=== PATIENT | male | born 1935 | race Caucasian/White ===

== ENCOUNTER 2021-10-03 21:24 | Emergency (ER) | payer MEDICARE, OTHER ==
[~2021-10-03] VITALS: Ht 177.8 cm; Wt 100.0 kg
[2021-10-03] MEDS ORDERED: FINA-27 PO (22:24)
[2021-10-03] MEDS ORDERED: MOM30 PO (22:24)
[2021-10-03] MEDS ORDERED: MELA3CAP2 PO (22:24)
[2021-10-03] MEDS ORDERED: ACET-784 PO (22:24)
[2021-10-03] MEDS ORDERED: FE RC (22:24)
[2021-10-03] MEDS ORDERED: METO-327 PO (22:24)
[2021-10-03] MEDS ORDERED: ASPI81TA39 PO (22:24)
[2021-10-03] MEDS ORDERED: DOCU-119 PO (22:24)
[2021-10-03] MEDS ORDERED: FURO-152 PO (22:24)
[2021-10-03] MEDS ORDERED: TAMS-13 PO (22:24)
[2021-10-03] MEDS ORDERED: ATOR40TA71 PO (22:24)
[2021-10-03] MEDS ORDERED: APIX5TAB PO (22:24)
[2021-10-03] MEDS ORDERED: CARB1TAB35 PO (22:24)
[2021-10-03] MEDS ORDERED: TIMO.5OS OU (22:24)
[2021-10-03] MEDS ORDERED: BISA10SU61 PR (22:24)
[2021-10-04 03:35] VITALS: BP 113/65
== END 2021-10-04 04:44 | disposition home or self-care (01) ==
LOC: EMS 21:29
DX: S09.90XA Unspecified injury of head, initial encounter (principal); I10 Essential (primary) hypertension; I48.91 Unspecified atrial fibrillation; Z88.5 Allergy status to narcotic agent; Z88.1 Allergy status to other antibiotic agents; Z79.899 Other long term (current) drug therapy; W06.XXXA Fall from bed, initial encounter; Y93.89 Activity, other specified; Y92.89 Other specified places as the place of occurrence of the external cause; Y99.8 Other external cause status
CPT/HCPCS: 70450; 72125; 99285